=== PATIENT | male | born 1995 | race Caucasian/White ===

== ENCOUNTER 2023-05-06 13:14 | Emergency (ER) | payer SELFPAY ==
[2023-05-06 13:20] VITALS: BP 150/86; PULSE 84; RESP 18; O2SAT 98; BMI 41.4
--- NOTE | 2023-05-06 14:07 | ED_ITS ---
HPI - Eye Problem General Chief complaint: Eye Problems Stated complaint: EYE INJURY,RIGHT EYE Time Seen by Provider: 05/06/23 13:57 Source: patient Mode of arrival: walk-in History of Present Illness HPI Narrative: patient is a 28-year-old male presents to the Emergency Room for evaluation of foreign body in the right eye, reports irritation denies significant pain. States symptoms occurred yesterday when he is working underneath a car and some rust fell into his eye. He does not wear contacts or glasses. Denies visual disturbance. Patient unsure of last tetanus. I appears irritated and tearful. He denies loss of vision. chief complaint: Reports eye redness and foreign body Related Data Home Medications Medication Instructions Recorded Confirmed cetirizine 10 mg tablet (24Hour 10 mg PO DAILY PRN allergy symptoms 05/06/23 05/06/23 Allergy) omeprazole 40 mg capsule,delayed 40 mg PO DAILY 05/06/23 05/06/23 release Allergies Allergy/AdvReac Type Severity Reaction Status Date / Time ibuprofen [From Motrin] AdvReac Hives Verified 05/06/23 13:20 Review of Systems ROS Constitutional Denies: fever, chills or change in weight Eyes Denies: change in vision or blurry vision Cardiovascular Denies: chest pain, palpitations or edema Respiratory Denies: shortness of breath Gastrointestinal Denies: abdominal pain Musculoskeletal Denies: back pain Integumentary/Breast Denies: rash Psychiatric Denies: anxiety Hematologic/Lymphatic Denies: easy bruising Exam Narrative Exam Narrative: Nurses's note reviewed and patient is not hypoxic. General: The patient appears well and in no apparent distress. Patient is resting comfortably on cart. Skin: Warm, dry, no pallor noted. Head: Normocephalic, atraumatic Neck: Supple, trachea mid-line, no tenderness, no lymphadenopathy Eye: Normal extraocular motion, pupils were equal round and reactive to light, the patient had no pain with extraocular motion. The patient had Tetracaine applied to the right eye fluorescein dye was instilled following. The patient had exam with slit lamp that did show evidence of uptake at the right upper lateral quadrant of cornea. foreign body with rust ring noted. Cotton tip swab used to remove a portion of the metal cut some appears retained with prominent rust ring. The patient had no involvement over the pupil. There was evidence of conjunctival injection. The patient's eyelid was everted and swept with no evidence of foreign body. The patient had no swelling of the upper/lower eyelid. No evidence of hyphema, dendritic lesion. No corneal ulcerations. No evidence of preseptal cellulitis or orbital cellulitis. Ears, Nose, Mouth, and Throat: oral mucosa is moist Respiratory: Patient is in no distress Neurological: A&O x4, normal speech Psychiatric: Cooperative Constitutional Vital Signs, click to edit/add: Last Vital Signs Pulse 84 05/06/23 13:20 Resp 18 05/06/23 13:20 BP 150/86 H 05/06/23 13:20 Pulse Ox 98 05/06/23 13:20 O2 Del Method Room Air 05/06/23 14:21 Course Vital Signs Vital signs: Vital Signs Pulse Rate 84 05/06/23 13:20 Respiratory Rate 18 05/06/23 13:20 Blood Pressure 150/86 H 05/06/23 13:20 Pulse Oximetry 98 05/06/23 13:20 Oxygen Delivery Method Room Air 05/06/23 13:20 Pulse Rate 84 05/06/23 13:20 Respiratory Rate 18 05/06/23 13:20 Blood Pressure 150/86 H 05/06/23 13:20 Pulse Oximetry 98 05/06/23 13:20 Oxygen Delivery Method Room Air 05/06/23 14:21 MDM - Eye Problem MDM Narrative Medical decision making narrative: patient's tetanus shot was updated, his visual acuity was 20/16 right, left and bilateral. Patient denies any for pain medication. We discussed retained rust ring, a phone call was made to a [facility] clinic across from the hospital. They will leave him today and discuss treatment today versus follow-up plan to a different eye doctor pending evaluation. We discussed the need for removal of his residual rust ring and ongoing eye follow-up. Patient thankful for coordination of care The patient is to followup with eye doctor today, primary care physician in next 2-3 days or to return to the emergency department should any of the signs or symptoms worsen or new symptoms develop. Patient had questions answered. The patient agrees with the following Diagnosis and Treatment plan and the patient will be discharged home. Discharge Plan Discharge Chief Complaint: Eye Problems Clinical Impression: Acute foreign body of right cornea Patient Disposition: Home, Self-Care Time of Disposition Decision: 14:32 Condition: Good Prescriptions / Home Meds: No Action cetirizine [24Hour Allergy] 10 mg tablet 10 mg PO DAILY PRN (Reason: allergy symptoms) omeprazole 40 mg capsule,delayed release(DR/EC) 40 mg PO DAILY Instructions: Eye Foreign Body (ED) Additional Instructions: My [facility] [phone] [place] [address]. Bleph 10 Opthalmic 2 drops right eye every 4 hrs for 7 days Stand Alone Forms: Portal Instructions Referrals: Physician,Non-Staff, MD [Primary Care Provider] - 1 week
[2023-05-06] MEDS: SULFACETAMIDE SODIUM 10% OP 300 DROP/15 ML BOTTLE OP (14:13)
[2023-05-06] MEDS: FLUORESCEIN SODIUM 1 MG STRIP OP (14:13)
[2023-05-06] MEDS: TETRACAINE HCL 0.5% OP SOL 80 DROP/4 ML BOTTLE OP (14:14)
[2023-05-06] MEDS: ADACEL DIPH,PERTUSS(ACELL),TET VAC/PF 0.5 ML ADULT SYRINGE IM (14:14)
== END 2023-05-06 14:58 | disposition home or self-care (01) ==
PROVIDERS: Emergency Provider Emergency Medicine
DX: T15.01XA Foreign body in cornea, right eye, initial encounter (principal); Z79.899 Other long term (current) drug therapy; Z23 Encounter for immunization
CPT/HCPCS: 90471; 90715; 99283